=== PATIENT | female | born 1965 | race Caucasian/White ===

== ENCOUNTER 2017-02-03 16:02 | Emergency (ER) | payer SELFPAY ==
[~2017-02-03 16:02] MED LIST: Sodium Chloride 0.9% 1,000 ML BAG ONE
[2017-02-03] MEDS ORDERED: Ketorolac Tromethamine 30 MG/ML VIAL ONE (16:28)
[2017-02-03] MEDS ORDERED: Ondansetron HCl/PF 4 MG/2 ML Vial ONE (16:28)
[2017-02-03] MEDS ORDERED: Hyoscyamine Sulfate SL 0.125 mg Tablet ONE ×2 (16:28→16:29)
[2017-02-03 17:00] LABS: #Basophils 0.1 thou/uL (0.0-0.2); #Eosinphils 0.2 thou/uL (0.0-0.7); #Lymphocytes 4.6 thou/uL (1.20-3.40); #Monocytes 0.7 thou/uL (0.11-0.59); #Neutrophils 7.7 thou/uL (1.40-6.50); %Basophils 1.1 % (0.0-1.0); %Eosinophils 1.6 % (0.0-10.0); %Lymphocytes 34.5 % (21.0-51.0); %Monocytes 5.1 % (0.0-10.0); %Neutrophils 57.8 % (42.0-75.0); Hemoglobin 13.2 g/dL (12.0-16.0); Mean Corpuscular HGB CONC 34.1 g/dL (32.0-36.0); Mean Platelet Volume 7.3 fL (7.4-10.4); Platelet Count 312 thou/uL (130-400); RBC Distribution Width 11.8 % (11.5-14.5); Red Blood Cell (RBC) Count 4.27 mill/uL (4.20-5.40); White Blood Cell (WBC) Count 13.3 thou/uL (4.8-10.8)
[2017-02-03 17:00] LABS: Bilirubin Negative (Negative); Blood, Urine Moderate (Negative); Clarity Cloudy (Clear); Glucose, Urine (Dipstick) Negative (Negative); Leukocyte Negative (Negative); Nitrite Negative (Negative); Protein, Urine (Dipstick) 100 mg/dL (Neg-Trace); Specific Gravity, Urine 1.025 (1.005-1.030); Urobilinogen 0.2 mg/dL (0.2-1.0); pH, Urine 5.5 (5.0-9.0)
--- NOTE | 2017-02-03 17:06 | CT ---
EXAM: ABDOMEN CT WITHOUT CONTRAST PELVIC CT WITHOUT CONTRAST 02/03/17 COMPARISON: 09/09/[address] with contrast 04/11/15. HISTORY: Pain. evaluate for renal calculi. TECHNIQUE: Abdomen and pelvic CT are performed without IV or oral contrast utilizing a renal stone protocol. Co gil reformatted imaging are submitted for interpretation. FINDINGS: ABDOMEN CT: Calcified granuloma in the right lung base. Heart size is normal. No pericardial effusion. No gastrohepatic, retrocrural or periportal lymphadenopathy. No mesenteric mass, lymphadenopathy, fr ee air or free fluid. Limited evaluation of the alimentary canal due to lack of oral contrast. Gastric mucosa, duodenum an d small bowel loops are grossly unremarkable. Ileocecal junction is normal. Appendix is not apprecia lady. No inflammation at the cecal apex. Occasional diverticulum. No diverticulitis. No evidence of c olonic obstruction. Liver is large, with a right hepatic lobe measuring 23.4 cm. Spleen is unremarkable. Pancreas and ad renal glands as well as gallbladder are unremarkable. Limited evaluation due to lack of IV contrast. Nonobstructing calculi in the lower pole left kidney. The largest calculus measures approximately 1 cm. No evidence of left sided obstructive uropathy. There is moderate dilatation of the right intra and extrarenal collecting system. There is calcification in the right ureterovesicular junction, melita suring 0.4 cm. No additional calcifications are identified in the right intrarenal collecting system . PELVIC CT: The urinary bladder is decompressed, limiting evaluation. No pelvic mass, lymphadenopathy, free air or free fluid. Hysterectomy changes are noted. No osteoblastic or osteolytic lesion. There is hepatic steatosis. IMPRESSION: 1. Moderate right sided obstructive uropathy secondary to a calcification 0.4 cm in the right u reterovesicular junction. 2. Nonobstructing calcification left kidney. 3. Hepatomegaly. POS: [facility]
[2017-02-03 17:08] LABS: Bacteria/HPF 2+ HPF (None Seen); RBC/HPF 21-50 HPF (0-3); Renal Epithelial 0-3 HPF (0-3); Transitional Epithelial 0-3 HPF (0-3)
[2017-02-03 17:15] LABS: ALT (SGPT) 31 U/L (0-55); AST (SGOT) 19 U/L (5-34); Albumin 4.1 g/dL (3.5-5.0); Alkaline Phosphatase 79 U/L (40-150); Amylase 54 U/L (25-125); Anion Gap 19 mmol/L (10-20); BUN (Urea Nitrogen) 22 mg/dL (9.8-20.1); Bilirubin, Total 0.3 mg/dL (0.2-1.2); Calc. Creatinine Clearance 0 mL/min (70-130); Calcium 9.6 mg/dL (7.8-10.44); Carbon Dioxide 19 mmol/L (22-29); Chloride 103 mmol/L (98-107); Estimated GFR-MDRD 44; Globulin 2.9 g/dL (2.4-3.5); Glucose 213 mg/dL (70-105); Lipase 52 U/L (8-78); Potassium 4.1 mmol/L (3.5-5.1); Sodium 137 mmol/L (136-145)
[2017-02-03] MEDS ORDERED: Ciprofloxacin 500 MG TAB ONE (17:36)
== END 2017-02-03 17:42 | disposition home or self-care (01) ==
LOC: MADERS 16:02
DX: N13.4 Hydroureter (principal); N20.1 Calculus of ureter; E11.9 Type 2 diabetes mellitus without complications; I10 Essential (primary) hypertension; Z79.84 Long term (current) use of oral hypoglycemic drugs; Z79.899 Other long term (current) drug therapy
CPT/HCPCS: 36415; 74176; 80053; 81001; 82150; 83690; 85025; 87086; 96361; 96374; 96375; J1885; J2405; J7050

== ENCOUNTER 2020-09-28 10:26 | Emergency (ER) | payer SELFPAY ==
[2020-09-28] MEDS ORDERED: Ondansetron PF 4 MG/2 ML Vial ONE (11:04)
[2020-09-28 11:05] LABS: #Basophils 0.1 thou/uL (0.0-0.2); #Eosinphils 0.2 thou/uL (0.0-0.7); #Monocytes 0.4 thou/uL (0.11-0.59); #Neutrophils 7.4 thou/uL (1.40-6.50); %Basophils 0.8 % (0.0-1.0); %Eosinophils 1.5 % (0.0-10.0); %Lymphocytes 27.6 % (21.0-51.0); %Monocytes 3.1 % (0.0-10.0); Hemoglobin 14.8 g/dL (12.0-16.0); Mean Corpuscular HGB CONC 32.4 g/dL (32.0-36.0); Mean Corpuscular Hemoglobin 29.1 pg (27.0-31.0); Mean Corpuscular Volume 89.7 fL (78.0-98.0); Mean Platelet Volume 7.6 fL (7.4-10.4); Platelet Count 290 thou/uL (130-400); RBC Distribution Width 11.7 % (11.5-14.5); Red Blood Cell (RBC) Count 5.08 mill/uL (4.20-5.40)
[2020-09-28 11:14] LABS: Base Excess-Venous -2.7 mmol/L (-2.0 to 3.0); Bicarbonate (HCO3v) 23.4 mmol/L (22.0-28.0); Hemoglobin - Calc 15.4 g/dL (12.0-16.0); Potassium 6.3 mmol/L (3.5-5.1); Sodium 132 mmol/L (138-145); vO2 Saturation-calc 92.6 % (60.0-85.0)
[2020-09-28 11:15] LABS: Calcium, Ionized 1.07 mmol/L (1.15-1.33); Chloride 102 mmol/L (98-107); T. Carbon Dioxide 24.7 mmol/L (22.0-28.0)
--- NOTE | 2020-09-28 11:16 | CT ---
Head CT without contrast 09/28/2020: Comparison: None HISTORY: Vomiting, hypertension TECHNIQUE: Axial CT imaging at 5 mm intervals from vertex through skull base without contrast FINDINGS: Imaged paranasal sinuses and mastoid air cells appear well-aerated. No displaced calvarial fracture. No intracranial hemorrhage, midline shift, mass effect, or ventricular enlargement. IMPRESSION: No intracranial hemorrhage or displaced calvarial fracture.
[2020-09-28 11:26] LABS: ALT (SGPT) 17 U/L (8-55); AST (SGOT) 19 U/L (5-34); Albumin 4.1 g/dL (3.5-5.0); Alkaline Phosphatase 112 U/L (40-110); Anion Gap 21 mmol/L (10-20); BUN (Urea Nitrogen) 15 mg/dL (9.8-20.1); Bilirubin, Total 0.5 mg/dL (0.2-1.2); Calc. Creatinine Clearance 0 mL/min (70-130); Carbon Dioxide 19 mmol/L (22-29); Chloride 100 mmol/L (98-107); Globulin 3.6 g/dL (2.4-3.5); Glucose 492 mg/dL (70-105); Magnesium 1.4 mg/dL (1.6-2.6); Protein, Total 7.7 g/dL (6.0-8.3); Sodium 136 mmol/L (136-145)
[2020-09-28] MEDS ORDERED: Meclizine HCl 25 MG TAB ONE (11:48)
[2020-09-28] MEDS ORDERED: Aspirin Chewable 81 MG TAB ONE (11:48)
[2020-09-28 12:30] LABS: Bilirubin Negative (Negative); Blood, Urine Trace (Negative); Clarity Cloudy (Clear); Glucose, Urine (Dipstick) >=1000 mg/dL (Negative); Ketone, Urine 15 mg/dL (Negative); Leukocyte Negative (Negative); Nitrite Positive (Negative); Protein, Urine (Dipstick) 100 mg/dL (Neg-Trace); Urobilinogen 0.2 mg/dL (Less than 2)
[2020-09-28 12:33] LABS: Bacteria/HPF 3+ HPF (None Seen); Mucous/LPF 1+ LPF (<2+); Squamous Epithelial 0-3 HPF (0-3); WBC/HPF 21-50 HPF (0-3); Yeast-Budding 1+ HPF (None Seen)
[2020-09-28] MEDS ORDERED: Promethazine HCl 25 MG/ML VIAL ONE (12:41)
[2020-09-28] MEDS ORDERED: Sodium Chloride 0.9% 2,000 ML ONE (12:41)
[2020-09-28] MEDS ORDERED: cefTRIAXone\\ROCEPHIN 1 GM VIAL ONE (12:51)
== END 2020-09-28 13:11 | disposition short-term general hospital (02) ==
LOC: MADERS 10:26
DX: R42 Dizziness and giddiness (principal); R29.700 NIHSS score 0; E11.9 Type 2 diabetes mellitus without complications; I10 Essential (primary) hypertension; Z87.442 Personal history of urinary calculi; Z79.84 Long term (current) use of oral hypoglycemic drugs; Z79.899 Other long term (current) drug therapy
CPT/HCPCS: 36416; 70450; 80053; 81003; 81015; 82330; 82803; 83735; 84484; 85025; 93005; 96374; 96375; J0696; J2405; J2550; J7050